=== PATIENT | male | born 1995 | race American Indian/Alaskan Native ===

== ENCOUNTER 2019-01-08 12:16 | Emergency (ER) | payer MEDICAID, OTHER ==
--- NOTE | 2019-01-08 12:32 | Event Note ---
ED Screening Note Date of service: 01/08/19 Time: 12:30 ED Screening Note: This is a 23 y.o. M. that presents to the ER with with right lateral foot pain s/p fall. Patient states he was playing with friends last night and experienced a ground level fall. States upon awakening this morning unable to apply pressure. This initial assessment/diagnostic orders/clinical plan/treatment(s) is/are subject to change based on patients health status, clinical progression and re- assessment by fellow clinical providers in the ED. Further treatment and workup at subsequent clinical providers discretion. Patient/guardian urged not to elope from the ED as their condition may be serious if not clinically assessed and managed. Initial orders include: XR right foot
--- NOTE | 2019-01-08 13:12 | Emergency Department Report ---
ED Back Pain/Injury HPI - General Chief Complaint: Extremity Injury, Lower Stated Complaint: RT FOOT PAIN Time Seen by Provider: 01/08/19 12:30 Source: patient Limitations: No Limitations - History of Present Illness Initial Comments: 23 YO AA MALE COMES TO ER WITH R LATERAL FOOT PAIN P ROLLING HIS FOOT WHILE PLAYING AROUND WITH FRIENDS YESTERDAY. AMBULATORY WITH A LIMP. NO ABRASION/LAC. OR OTHER INJURY. - Related Data Previous Rx's Medication Instructions Recorded Last Taken Type Cyclobenzaprine HCl [Flexeril 5 MG 5 mg PO Q8HR #20 tablet 01/21/15 Unknown Rx TAB] Ibuprofen [Motrin 800 MG tab] 800 mg PO Q8HR PRN #30 tablet 01/21/15 Unknown Rx traMADol [Ultram 50 MG tab] 50 mg PO Q6HR PRN #20 tablet 01/21/15 Unknown Rx Allergies Allergy/AdvReac Type Severity Reaction Status Date / Time peanut Allergy Swelling Verified 01/21/15 19:35 ED Review of Systems ROS: Stated complaint: RT FOOT PAIN Other details as noted in HPI Comment: All other systems reviewed and negative ED Past Medical Hx - Past Medical History Medical history: no medical history Family history: no significant family history ED Back Pain Physical Exam - Exam General: Vital signs noted. No distress. Alert and acting appropriately. Back/Abdomen: No Abdominal Tenderness Neuro: Yes Normal Sensation, Yes Normal DTR's, No Motor Weakness ED Course Vital Signs 01/08/19 12:30 Temperature 97.8 F Pulse Rate 81 Respiratory 16 Rate Blood Pressure 130/85 O2 Sat by Pulse 99 Oximetry Ed Back Pain Tests - Tests Tests: Normal X Rays ED Medical Decision Making - Radiology Data Radiology results: report reviewed, image reviewed - Medical Decision Making XRAY NEG AMBULATION LIMITED WITH PAIN WILL CRUTCH- WILL DC HOME WITH [facility] AND HAVE PT SEE ORTHO NEXT WEEK DP PLUS 2 BILAT. NO SWELLING ON EXAM. [facility]ILLES INTACT DC HOME WITH DC PLAN OF CARE AND ORTHO FOLLOW UP Vital Signs 01/08/19 12:30 Temperature 97.8 F Pulse Rate 81 Respiratory 16 Rate Blood Pressure 130/85 O2 Sat by Pulse 99 Oximetry - Differential Diagnosis RO FX Critical care attestation.: If time is entered above; I have spent that time in minutes in the direct care of this critically ill patient, excluding procedure time. ED Disposition Clinical Impression: Foot sprain Disposition: DC-01 TO HOME OR SELFCARE Is pt being admited?: No Does the pt Need Aspirin: No Condition: Stable Instructions: Foot Sprain (ED) Additional Instructions: REST ICE ELEVATE CRUTCHES MOTRIN OR TYLENOL FOR PAIN FOLLOW UP WITH DR DIAZ NEXT WEEK REFERRAL BELOW Referrals: KEYON DIAZ MD [Staff Physician] - 3-5 Days Time of Disposition: 13:33
--- NOTE | 2019-01-08 13:25 | XRay Report ---
Right foot, 3 views INDICATION: lateral pain s/p fall, r/o fx. COMPARISON: None. IMPRESSION: No acute osseous or soft tissue abnormality. No significant DJD. Signer Name: Ezequiel Barone Jr, MD Signed: 01/08/2019 1:21 PM Workstation Name: [id number]
[2019-01-08] MEDS ORDERED: IBUPROFEN PO ONE (13:47)
[2019-01-08 14:10] VITALS: BP 128/68
== END 2019-01-08 14:10 | disposition home or self-care (01) ==
LOC: ED 12:16
DX: S93.601A Unspecified sprain of right foot, initial encounter (principal); X58.XXXA Exposure to other specified factors, initial encounter; Y93.89 Activity, other specified; Y92.89 Other specified places as the place of occurrence of the external cause; Y99.8 Other external cause status